=== PATIENT | female | born 1965 | race Asian ===

== ENCOUNTER 2017-01-25 23:12 | Emergency (ER) | payer MEDICAID ==
[~2017-01-25] VITALS: Ht 157.5 cm; Wt 63.5 kg
[2017-01-25] MEDS ORDERED: ACETAMINOPHEN 325 MG TAB PO ONE (23:32)
[2017-01-25 23:40] VITALS: BP 138/81
[2017-01-26] MEDS ORDERED: ACETAMINOPHEN 325 MG TAB PO ONE
[2017-01-26 00:49] LABS: Basophils # (auto) 0 uL; Basophils % (auto) 0.5 % (0.0-2.0); Eosinophils # (auto) 0 uL; Eosinophils % (auto) 0.1 % (0.0-7.0); Hematocrit 36.4 % (36.0-46.0); Hemoglobin 11.8 g/dL (12.2-16.2); Lymphocytes # (auto) 0.9 uL; Lymphocytes % (auto) 9.8 % (10.0-50.0); Mean Corpuscular Hemoglobin 27.4 pg (28.0-32.0); Mean Corpuscular Hgb Conc. 32.4 g/dL (32.0-36.0); Mean Corpuscular Volume 84.7 fL (80.0-100.0); Mean Platelet Volume 7.5 fL (7.4-10.4); Monocytes % (auto) 10.6 % (0.0-12.0); Neutrophils # (auto) 7.2 uL; Platelet Count (auto) 228 10^3/uL (140-450); Red Cell Distribution Width 13.4 % (11.6-16.0); SUSPECT VIEW TRANSMISSION; White Blood Cell 9.1 10^3/uL (4.4-10.8)
[2017-01-26 01:03] LABS: Albumin 3.5 g/dL (3.4-5.0); BUN/Creatinine Ratio 15.2; Calcium 7.9 mg/dL (8.5-10.1); Magnesium 1.9 mg/dL (1.6-2.6); Potassium 3.4 mmol/L (3.5-5.1)
[2017-01-26 01:05] LABS: Bilirubin, Total 0.4 mg/dL (0.2-1.0); Total Protein 8.1 g/dL (6.4-8.2)
[2017-01-26 01:19] LABS: Urine Bilirubin Negative (Negative); Urine Blood Negative /uL (Negative); Urine Color Yellow (Yellow); Urine Glucose Normal (Normal); Urine Ketone TRACE (Negative); Urine Mucus FEW (None Seen); Urine Nitrite Negative (Negative); Urine RBC 13 /hpf (0 - 4); Urine Squamous Epithelial Cell MOD /hpf (<5); Urine Urobilinogen Normal (Negative); Urine pH 5.5 (5.0-8.0)
== END 2017-01-26 01:30 | disposition left against medical advice (07) ==
LOC: ER 23:16
DX: R50.9 Fever, unspecified (principal); R52 Pain, unspecified; Z53.21 Procedure and treatment not carried out due to patient leaving prior to being seen by health care provider
CPT/HCPCS: 36415; 71020; 80053; 81001; 81025; 83605; 83735; 85025; 87040

== ENCOUNTER 2017-01-26 12:20 | Emergency (ER) | payer MEDICAID ==
[~2017-01-26] VITALS: Ht 162.6 cm; Wt 64.0 kg
[2017-01-26 12:34] VITALS: BP 111/64
[2017-01-26] MEDS ORDERED: IBUPROFEN 600 MG TAB PO ONE (12:45)
[2017-01-26] MEDS ORDERED: cefTRIAXone SOD 1,000 MG VL ONE (13:27)
[2017-01-26] MEDS ORDERED: cefTRIAXone SOD 1,000 MG VL IM ONE (13:30)
== END 2017-01-26 14:07 | disposition home or self-care (01) ==
LOC: ER 12:23
DX: N39.0 Urinary tract infection, site not specified (principal); J20.9 Acute bronchitis, unspecified
CPT/HCPCS: 96372; 99283; J0696